=== PATIENT | female | born 1995 ===

== ENCOUNTER 2018-01-31 15:56 | Emergency (ER) | payer SELFPAY ==
[2018-01-31 16:37] VITALS: BP 107/62
[2018-01-31] MEDS ORDERED: Acetaminophen TAB* 325 MG PO ONE (17:39)
--- NOTE | 2018-01-31 17:39 | UC ---
Abdominal Pain Female HPI - HPI Summary HPI Summary: A 22 y/o female accompanied by her boyfriend presents to [facility] c/o abdominal pain and frequent diarrhea reaching 3/10 in severity. Currently, the patient feels much better than 3-hours ago, but wanted to follow-up as she is concerned for the frequent diarrhea. According to the patient, she has been experiencing abdominal pain since Wednesday (01/28/2018). She stated that she normally gets stomach aches as she sees a full charge bookkeeper, however, on Wednesday (01/29/2018 ), the pain exhibited all day. Additionally that night she has been experiencing frequent diarrhea till this morning. She denies any blood or black in her stool. She noted that she her menstrual period started recently, so now she has lots of cramps. She perserved through the symptoms as she had class, but around 1400, she was "really hurting". During laboratory, she started seeing white and had to step out of the room. EMS was called and brought her to [facility]. She was referred by [facility] to [facility]. No one she is around has the diarrhea like her and she has not traveled anywhere recently. Additionally, she has not had any questionable or new food. Also denies any fever or chills, but experiences nausea. Last diarrhea episode was this AM. Patient did not take any medications for cramps. Her period cramps fluctuates in pain, but the pain she has been experiencing recently has been on the worse end of the scale comparing to previous cramps, but she is not entirely sure. Saw her full charge bookkeeper March 2017. No known allergies. Patient ate cereal and chicken sandwich today. No food allergies known. SHx of no smoking, no ETOH and no recreational drugs. Pt's medications reviewed this visit. - History of Current Complaint Chief Complaint: UCGeneralIllness Stated Complaint: ABD PAIN Time Seen by Provider: 01/31/18 17:22 Hx Obtained From: Patient Hx Last Menstrual Period: [id number] Onset/Duration: Sudden Onset, Lasting Days, Still Present Severity Initially: Mild Severity Currently: Mild Pain Intensity: 3 Pain Scale Used: 0-10 Numeric Location: Diffuse Radiates: No Character: Cramping Aggravating Factor(s): Nothing Alleviating Factor(s): Nothing Associated Signs and Symptoms: Positive: Nausea, Diarrhea. Negative: Vomiting Allergies/Adverse Reactions: Allergies Allergy/AdvReac Type Severity Reaction Status Date / Time No Known Allergies Allergy Verified 01/31/18 16:39 Home Medications: Home Medications NK [No Home Medications Reported] 01/31/18 [History Confirmed 01/31/18] PMH/Surg Hx/FS Hx/Imm Hx Previously Healthy: Yes - Surgical History Surgical History: None - Family History Known Family History: Positive: Other - NON-CONTRIBUTORY - Social History Occupation: Student Lives: Dormitory/Roommates Alcohol Use: None Substance Use Type: None Smoking Status (MU): Never Smoked Tobacco Review of Systems Constitutional: Negative Skin: Negative Eyes: Negative ENT: Negative Respiratory: Negative Cardiovascular: Negative Gastrointestinal: Abdominal Pain, Diarrhea, Nausea Genitourinary: Negative Motor: Negative Neurovascular: Negative Musculoskeletal: Negative Neurological: Negative Psychological: Negative Is Patient Immunocompromised?: No All Other Systems Reviewed And Are Negative: Yes Physical Exam - Summary Physical Exam Summary: Vital Signs Reviewed: Yes A+Ox3, no distress, well appearing Eyes: Conjunctiva Clear, SPARKLE. EOM intact and full ENT: Hearing grossly normal TM x 2 clear, mmoist, uvula midline, no exudate, no erythema Neck: Positive: Supple Respiratory: Positive: No respiratory distress, No accessory muscle use + CTA throughout no w/r Cardiovascular: RRR nl s1, s2 no m/r CBT <2 sec abd soft + BS nt/nd no guarding, no distension Musculoskeletal Exam: BERRY x 4 without difficulty Strength Intact, ROM Intact Neurological: Positive: Alert, + sensation throughout Psychological: Positive: Normal Response To Family Skin: Positive: no rash, no ecchymosis Triage Information Reviewed: Yes Vital Signs: Initial Vital Signs Temp 98.0 F 01/31/18 16:32 Pulse 73 01/31/18 16:32 Resp 16 01/31/18 16:32 BP 107/62 01/31/18 16:32 Pulse Ox 100 01/31/18 16:32 Vital Signs Reviewed: Yes Abd Pain Female Course/Dx - Course Course Of Treatment: pt presents reporting abdominal pain and cramping x 2 days. pt states had to leave class earlier today second to pain and need for diarrhea. pt reports feeling better at this time,but wanted to be checked. pt with stable vs. non concerning exam. recommend clears to bland. apap prn. return precautions - Differential Dx/Diagnosis Provider Diagnoses: abdominal pain. diarrhea Discharge - Sign-Out/Discharge Documenting (check all that apply): Patient Departure - DISCHARGE All imaging exams completed and their final reports reviewed: No Studies - Discharge Plan Condition: Stable Disposition: HOME Patient Education Materials: Dysmenorrhea (ED), Acute Diarrhea (ED), Acute Abdominal Pain (ED) Referrals: [facility] [Provider Group] No Primary Care Phys,NOPCP [Primary Care Provider] - Additional Instructions: - Okay to alternate ibuprofen (Advil, Motrin) 600mg and Tylenol every 3 hours as needed for pain. Take with food. Do NOT take for more than 4-5 days.- - For the first 6 hours, eat and drink clears (water, chuck everton, soup broth, jello, popsicles, Gatorade). If you tolerate this okay, add bland foods such as dry toast, scrambled eggs, crackers. Wait until you are feeling better for 24 hours before eating spicy food, acidic food, tomato based food, fried food. - avoid spicy food, acidic food, tomato based food, citric food - okay to use a warm heat pack on your abdomen to help with discomfort - It is recommended you keep a food and symptom journal - if you pain returns, you are unable to stay hydrated, you develop fevers or have any other concerns it is recommended you go to the emergency department for further evaluation and treatment - Billing Disposition and Condition Condition: STABLE Disposition: Home - Attestation Statements Document Initiated by Chel: Yes Documenting Scribe: Santiago Mckeon Provider For Whom Antonioe is Documenting (Include Credential): Lily Sanderson MD Scribe Attestation: Santiago Hanna, scribed for Lily Sanderson MD on 02/02/18 at 1434. Scribe Documentation Reviewed: Yes Provider Attestation: The documentation as recorded by the Santiago garces accurately reflects the service I personally performed and the decisions made by me, Lily Sanderson MD
== END 2018-01-31 17:53 | disposition home or self-care (01) ==
LOC: UCEAST 15:56
CPT/HCPCS: 81003; 84702; 99202; A9270-GY; G0463

== ENCOUNTER 2019-04-28 02:38 | Emergency (ER) | payer OTHER ==
[2019-04-28 04:09] LABS: ABS Basophils 0.1 10^3/ul (0-0.2); ABS Lymphocytes 1.7 10^3/ul (1.0-4.8); ABS Monocytes 1.4 10^3/ul (0-0.8); ABS Neutrophils 16.3 10^3/ul (1.5-7.7); Eosinophil % 0.2 %; Hematocrit 37 % (35-47); Hemoglobin 12.5 g/dL (12.0-16.0); Lymphocyte % 8.5 %; Mean Corpuscular HGB Conc 34 g/dL (31-36); Mean Corpuscular Hemoglobin 30 pg (27-31); Mean Corpuscular Volume 89 fL (80-97); Mean Platelet Volume 8.8 fL (7.4-10.4); Platelet Count 253 10^3/uL (150-450); Red Blood Count 4.15 10^6 /uL (3.70-4.87); Red Cell Distribution Width 14 % (10-15); White Blood Count 19.5 10^3/uL (3.5-10.8)
[2019-04-28 04:40] LABS: Albumin 4.5 g/dL (3.2-5.2); Albumin/Globulin Ratio 1.6 (1-3); BUN/Creatinine Ratio 13.6 (8-20); C Reactive Protein 15.51 mg/L (<8.01); Calcium 9.7 mg/dL (8.6-10.3); EGFR African American 155.7 (>60); EGFR Non-African American 128.7 (>60); Globulin 2.9 g/dL (2-4); Potassium 3.8 mmol/L (3.5-5.0); Total Bilirubin 0.4 mg/dL (0.2-1.0); Total Protein 7.4 g/dL (6.4-8.9)
[2019-04-28 04:44] LABS: HCG Pregnancy 3.55 mIU/mL
--- NOTE | 2019-04-28 05:05 | ED ---
Abdominal Pain/Female - HPI Summary HPI Summary: This patient is a 23 year old F presenting to ED with a chief complaint of abdominal and back pain since 1999 yesterday. The patient initially had upper abdominal pain at 1999, but has since turned into middle back pain. Patient took FDGard, which helped her abdominal pain but not her back pain. In the ED room, she reports her back pain has lessened in severity. Patient reports nausea. Patient denies fever, vomiting, diarrhea, constipation. Patient had a UTI a few weeks ago and she finished her course of antibiotics. However, her symptoms returned last week but then went away yesterday. Thus, she denies burning and pain upon urination. The patient rates the pain 7/10 in severity. Symptoms aggravated by nothing. Symptoms alleviated by FDGard. - History of Current Complaint Chief Complaint: EDFlankPain Stated Complaint: BACK PAIN PER PT Time Seen by Provider: 04/28/19 04:44 Hx Obtained From: Patient Hx Last Menstrual Period: [id number] Onset/Duration: Gradual Onset, Lasting Hours - Since 1999 yesterday, Still Present, Other - Lessened in severity since arriving to ED Timing: Constant Severity Initially: Severe Severity Currently: Moderate Pain Intensity: 7 Pain Scale Used: 0-10 Numeric Location: Diffuse - Lower abdomen Radiates: Yes Radiates to: Back Aggravating Factor(s): Nothing Alleviating Factor(s): Nothing Associated Signs and Symptoms: Positive: Nausea. Negative: Fever, Urinary Symptoms, Vomiting, Diarrhea Allergies/Adverse Reactions: Allergies Allergy/AdvReac Type Severity Reaction Status Date / Time No Known Allergies Allergy Verified 04/28/19 02:45 PMH/Surg Hx/FS Hx/Imm Hx Sensory History: Denies: Hx Legally Blind, Hx Deafness Opthamlomology History: Denies: Hx Legally Blind EENT History: Denies: Hx Deafness - Surgical History Surgery Procedure, Year, and Place: Denies Infectious Disease History: No Infectious Disease History: Denies: Traveled Outside the [place] in Last 30 Days - Family History Known Family History: Negative: Hypertension, Diabetes - Social History Alcohol Use: None Hx Substance Use: No Substance Use Type: Reports: None Hx Tobacco Use: No Smoking Status (MU): Never Smoked Tobacco Review of Systems - ROS Summary Review of Systems Summary: Home Medications Medication Instructions Recorded Confirmed Type NK [No Home Medications Reported] 01/31/18 01/31/18 History Negative: Fever Positive: Abdominal Pain, Nausea. Negative: Vomiting, Diarrhea Negative: burning, dysuria Musculoskeletal: Other - Back pain All Other Systems Reviewed And Are Negative: Yes Physical Exam - Summary Physical Exam Summary: General: Well-developed, Well-nourished female. No acute distress. HEENT: Normocephalic, Atraumatic. Eyes: Conjuctiva normal, PERRL. Oropharynx: Clear, mucous membranes moist, (-) exudates. Neck: Soft, FROM, (-) lymphadenopathy, (-) thyromegaly, (-) JVD. Cardiovascular: Normal sinus rhythm, (-) murmur. Lungs: Clear to auscultation bilaterally (-) wheezes, (-) rales, (-) rhonchi. Abdomen: Soft, non-tender, non-distended, (-) organomegaly, normal bowel sounds. Back: (-) CVA tenderness Extremities: No edema. Skin: Warm, dry, (-) rash. Neuro: Alert and oriented x3, no focal deficits. Psychiatric: Mood normal, affect normal. Triage Information Reviewed: Yes Vital Signs On Initial Exam: Initial Vitals Temp Pulse Resp BP Pulse Ox 98.4 F 72 16 115/74 97 04/28/19 02:39 04/28/19 02:39 04/28/19 02:39 04/28/19 02:39 04/28/19 02:39 Vital Signs Reviewed: Yes Procedures - Sedation Patient Received Moderate/Deep Sedation with Procedure: No Diagnostics - Vital Signs Vital Signs Temp Pulse Resp BP Pulse Ox 04/28/19 02:39 98.4 F 72 16 115/74 97 - Laboratory Lab Results: Lab Results 04/28/19 04/28/19 04/28/19 Range/Units 04:03 04:03 04:03 WBC 19.5 H (3.5-10.8) 10^3/uL RBC 4.15 (3.70-4.87) 10^6 /uL Hgb 12.5 (12.0-16.0) g/dL Hct 37 (35-47) % MCV 89 (80-97) fL MCH 30 (27-31) pg MCHC 34 (31-36) g/dL RDW 14 (10-15) % Plt Count 253 (150-450) 10^3/uL MPV 8.8 (7.4-10.4) fL Neut % (Auto) 83.5 % Lymph % (Auto) 8.5 % Delta % (Auto) 7.2 % Eos % (Auto) 0.2 % Baso % (Auto) 0.6 % Absolute Neuts (auto) 16.3 H (1.5-7.7) 10^3/ul Absolute Lymphs (auto) 1.7 (1.0-4.8) 10^3/ul Absolute Monos (auto) 1.4 H (0-0.8) 10^3/ul Absolute Eos (auto) 0.0 (0-0.6) 10^3/ul Absolute Basos (auto) 0.1 (0-0.2) 10^3/ul Absolute Nucleated RBC 0.0 10^3/ul Nucleated RBC % 0.0 Sodium 135 (135-145) mmol/L Potassium 3.8 (3.5-5.0) mmol/L Chloride 103 (101-111) mmol/L Carbon Dioxide 26 (22-32) mmol/L Anion Gap 6 (2-11) mmol/L BUN 8 (6-24) mg/dL Creatinine 0.59 (0.51-0.95) mg/dL Est GFR ( Amer) 155.7 (>60) Est GFR (Non-Af Amer) 128.7 (>60) BUN/Creatinine Ratio 13.6 (8-20) Glucose 114 H (70-100) mg/dL Lactic Acid 0.7 (0.5-2.0) mmol/L Calcium 9.7 (8.6-10.3) mg/dL Total Bilirubin 0.40 (0.2-1.0) mg/dL AST 13 (13-39) U/L ALT 5 L (7-52) U/L Alkaline Phosphatase 37 (34-104) U/L C-Reactive Protein 15.51 H (<8.01) mg/L Total Protein 7.4 (6.4-8.9) g/dL Albumin 4.5 (3.2-5.2) g/dL Globulin 2.9 (2-4) g/dL Albumin/Globulin Ratio 1.6 (1-3) Amylase 45 (29-103) U/L Lipase 11 (11.0-82.0) U/L Beta HCG, Quant 3.55 mIU/mL Result Diagrams: 04/28/19 04:03 04/28/19 04:03 Lab Statement: Any lab studies that have been ordered have been reviewed, and results considered in the medical decision making process. Re-Evaluation - Re-Evaluation First Eval Re-Evaluation Time: 05:44 Comment: Patient has UTI. Will start on Keflex and discharge. Discussed results with patient. Discussed symptoms that warrant immediate return to ED. Abdominal Pain Fem Course/Dx - Course Course Of Treatment: 23-year-old female presents with abdominal pain that radiates to her back. Nausea. Patient with recent UTI. Workup demonstrates urinary tract infection. In the ED course, patient received Keflex. Patient discharged home on Keflex. Advised plenty of fluids. Advised follow-up in 2 weeks for urinalysis and confirmation of cure. Follow sooner for any worsening symptoms. - Diagnoses Provider Diagnoses: UTI (urinary tract infection) Discharge ED - Sign-Out/Discharge Documenting (check all that apply): Patient Departure - Discharge - Discharge Plan Condition: Stable Disposition: HOME Prescriptions: Cephalexin CAP* [Keflex CAP*] 500 mg PO TID #21 cap Patient Education Materials: Cephalexin (By mouth), Urinary Tract Infection in Women (ED) Referrals: [facility] [Outside] - 3 Days Additional Instructions: Please follow up with your primary care physician within three days. Please return to ED for any new or worsening symptoms. - Billing Disposition and Condition Condition: STABLE Disposition: Home - Attestation Statements Document Initiated by Chel: Yes Documenting Scribe: Meliton Santiago Provider For Whom Chel is Documenting (Include Credential): Ana Marroquin MD Scribe Attestation: IMeliton, scribed for Ana Marroquin MD on 05/01/19 at 1936. Scribe Documentation Reviewed: Yes Provider Attestation: The documentation as recorded by the Meliton garces accurately reflects the service I personally performed and the decisions made by me, Ana Marroquin MD Status of Scribmark Document: Viewed
[2019-04-28 05:40] LABS: Urine Appearance Cloudy; Urine Bilirubin Negative (Negative); Urine Blood 3+ (Negative); Urine Color Yellow; Urine Glucose Negative (Negative); Urine Ketones Negative (Negative); Urine Nitrite Positive (Negative); Urine Protein 2+(100 mg/dL) (Negative); Urine Urobilinogen Negative (Negative)
[2019-04-28] MEDS ORDERED: Cephalexin CAP* 500 MG PO ONE (05:44)
[2019-04-28 05:46] LABS: Urine Bacteria 1+ (Absent); Urine Red Blood Cell 3+(>10/hpf) (Absent); Urine Squamous Epithelial Cell Present (Absent); Urine White Blood Cell 3+(>20/hpf) (Absent)
[2019-04-28 06:26] VITALS: BP 116/73
--- NOTE | 2019-04-30 05:35 | ED ---
Imaging and Labs Follow Up Follow Up Type: Labs/Cultures Labs/Culture Result: Pt placed on keflex prior to discharge for UTI Patient Communication/Plan: treated Patient Communication/Plan: awaiting sensitivities Provider Diagnoses: UTI (urinary tract infection)
== END 2019-04-28 06:10 | disposition home or self-care (01) ==
LOC: ED 02:38
DX: N39.0 Urinary tract infection, site not specified (principal)
CPT/HCPCS: 36415; 80053; 81003; 81015; 82150; 83605; 83690; 84702; 85025; 86140; 87077; 87086; 87186; 99282; A9270-GY